=== PATIENT | female | born 1980 | race Two or more races ===

== ENCOUNTER 2023-03-16 18:05 | Emergency (ER) | payer OTHER ==
[~2023-03-16] VITALS: Ht 167.6 cm; Wt 131.5 kg
[~2023-03-16 18:05] MED LIST: ENALAPRIL MALE2.5 MG PO; GLIMEPIRIDE1 MG PO
[2023-03-16] MEDS ORDERED: GLUMETZA500 MG PO (18:31)
[2023-03-16 19:31] LABS: PH,URINE 5.5 (5.0-8.0); URINE APPEARANCE Cloudy; URINE BILIRRUBIN Negative (NEGATIVE); URINE BLOOD Large; URINE COLOR Yellow; URINE LEUKOCYTE Large; URINE NITRATE Positive
[2023-03-16 19:34] LABS: HEMATOCRIT 32.2 % (36.0-45.00); MEAN CELL VOLUME 77.5 fL (80.00-100.00); MEAN CORPUSCULAR HEMOGLOBIN 26.5 pg (27.00-32.0); MEAN CORPUSCULAR HGB CONC 34.1 g/dl (32.0-36.0); PLATELET COUNT 176 K/uL (150-450); RED BLOOD COUNT 4.16 M/uL (4.00-6.00); RED CELL DISTRIBUTION WIDTH 15.7 % (11.5-14.5)
[2023-03-16 19:34] LABS: URINE EPITHELIAL CELLS 36.4 uL (0.0-38.8); URINE RBC 1825.3 uL (0.0-20.8); URINE WBC 1137.9 uL (0.0-23.2)
[2023-03-16 19:46] LABS: URINE BACTERIA > 9821.5 uL (0.0-1933); URINE GLUCOSE 500 MG/DL (NEGATIVE); URINE PROTEIN 100 (NEGATIVE)
[2023-03-16 19:54] LABS: CALCIUM 8.4 mg/dL (8.5-10.1); GFR 60.51; POTASSIUM 3.89 mEq/L (3.5-5.1)
== END 2023-03-16 20:46 | disposition home or self-care (01) ==
LOC: ER 18:05
PROVIDERS: General Practice
DX: N39.0 Urinary tract infection, site not specified (principal); Z91.013 Allergy to seafood

== ENCOUNTER 2023-12-04 23:53 | Emergency (ER) | payer OTHER ==
[~2023-12-04] VITALS: Ht 160 cm; Wt 117.9 kg
[~2023-12-04 23:53] MED LIST changes: +GLUMETZA500 MG PO
[2023-12-05] MEDS ORDERED: ATORVASTATIN CA10 MG (00:05)
[2023-12-05] MEDS ORDERED: LANTUS SOL100 UNIT/1 (00:05)
[2023-12-05] MEDS ORDERED: TRAMADOL HCL 50 MG TABLET PO STA (01:11)
[2023-12-05] MEDS ORDERED: TRAMADOL HCL50 MG PO (01:19)
== END 2023-12-05 01:34 ==
LOC: ER 23:54
DX: K08.9 Disorder of teeth and supporting structures, unspecified (principal); E11.9 Type 2 diabetes mellitus without complications; Z79.84 Long term (current) use of oral hypoglycemic drugs; Z91.013 Allergy to seafood